=== PATIENT | female | born 1965 | race Caucasian/White ===

== ENCOUNTER → 2017-08-13 | Outpatient (CLI) | payer OTHER ==
[~2017-08-13] MED LIST: LISINOPRIL20 MG PO; MEDROLDOSEPACK PO; PRAVACHOL20 MG PO; PREMARIN0.625 MG PO; SYNTHROID175 MCG PO; TOPROL XL100 MG PO; TORADOL 10 MG T10 MG PO; VALIUM5 MG PO; VITAMIN D3400 UNIT PO
--- NOTE | 2017-08-13 15:12 | EXE ---
[place] [address] STRESS ECHOCARDIOGRAM Name: ANNITA BROUSSARD Gayle Room: [facility]#: [id number] Admission: 08/13/17 Attend Phys: Rolf Villatoro, Discharge: Date of : 69 Date of Service: 08/13/17 1511 Report #: [id number] THIS REPORT FOR: //name// APPROVED REPORT Exam: Stress Echocardiogram Indication: Dyspnea Patient Location: Out-Patient Stress Nurse: Benita Burch RN Supervising Physician: Alfredo Murrieta MD Status: routine Ht: 6 ft 0 in HR: 52 bpm BP: 113/67 mmHg Rhythm: NSR Medical History Cardiac Risk Factors: HTN, Hyperlipidemia Procedure The patient underwent an Exercise Stress Test using the Owen Protocol. Blood pressure, heart rate, and EKG were monitored. An Echocardiogram was performed by contract technician in four stages in quad fashion. At peak stress, four selected images were obtained and placed side by side with resting images for comparison. Echo Enhancing Agent Indication: Endocardial border delineation Agent(s) / Amount(s) Used: Optison 8 cc Stress Test Details Stress Test: Exercise stress testing was performed using a Owen protocol. HR Resting HR: 52 bpm Max Heart Rate (APMHR): 171 bpm Max HR Achieved: 150 bpm Target HR (85% APMHR): 145 bpm % of APMHR: 87 Recovery HR: 72 bpm HR response to stress: Normal HR response to stress BP Resting BP: 113/67 mmHg Max BP: 170/86 mmHg Recovery BP: 117/67 [place] [address] STRESS ECHOCARDIOGRAM Name: ANNITA BROUSSARD Gayle Room: [facility]#: [id number] Admission: 08/13/17 Attend Phys: Rolf Villatoro, Discharge: Date of : 69 Date of Service: 08/13/17 1511 Report #: [id number] Clinical Reason for Termination: Dyspnea, Maximal effort Exercise duration: 7 min 22 sec Highest Stage Achieved: 3 Exercise capacity: 9.13 METs Pre-Stress Echo The resting Echocardiogram showed normal left ventricular contractility with an estimated Ejection Fraction of about 55-60%. Normal wall motion in all segments on baseline images. Post-Stress Echo The stress Echocardiogram showed normal left ventricular contractility with an estimated Ejection Fraction of about >70%. Normal augmentation of wall motion in all segments on post stress images. Clinical Normal augmentation of myocardial wall segments using a 17 segment model. Conclusion Clinical Response: Non-ischemic Exercise Capacity: Average Stress ECG Response: Non-ischemic Stress Echo Images: Non-ischemic The left ventricle is normal in size and wall thickness in both the rest and stress images. Other Information Technically limited study due to body habitus, poor endocardial definition. <Conclusion> The left ventricle is normal in size and wall thickness in both the rest and stress images. <ELECTRONICALLY SIGNED> By: Alfredo Murrieta MD, FACC 08/13/171510 10 10 Alfredo Murrieta MD, FACC /INF
== END ==
LOC: M.CRD 13:00
DX: I47.1 Supraventricular tachycardia (principal); R06.09 Other forms of dyspnea

== ENCOUNTER 2018-01-16 23:03 | Emergency (ER) | payer OTHER ==
[~2018-01-16] VITALS: Ht 182.9 cm; Wt 129.3 kg
[2018-01-16] MEDS ORDERED: TOPROL XL100 MG PO (23:12)
[2018-01-16] MEDS ORDERED: SYNTHROID175 MCG PO (23:12)
[2018-01-16] MEDS ORDERED: PREMARIN0.625 MG PO (23:13)
[2018-01-16] MEDS ORDERED: PRAVACHOL20 MG PO (23:13)
[2018-01-16] MEDS ORDERED: LISINOPRIL20 MG PO (23:13)
[2018-01-16] MEDS ORDERED: VITAMIN D3400 UNIT PO (23:14)
[2018-01-17] MEDS ORDERED: MEDROLDOSEPACK PO ×2 (01:37→01:39)
[2018-01-17] MEDS ORDERED: TORADOL 10 MG T10 MG PO ×2 (01:37→01:39)
[2018-01-17] MEDS ORDERED: VALIUM5 MG PO (01:37)
[2018-01-17 01:46] VITALS: BP 131/83
== END 2018-01-17 01:47 | disposition home or self-care (01) ==
LOC: M.ERS 23:03
DX: M54.42 Lumbago with sciatica, left side (principal); M54.41 Lumbago with sciatica, right side; M19.90 Unspecified osteoarthritis, unspecified site; I10 Essential (primary) hypertension; E03.9 Hypothyroidism, unspecified; Z90.49 Acquired absence of other specified parts of digestive tract

== ENCOUNTER 2018-02-09 17:03 | Inpatient (IN) | payer OTHER ==
[~2018-02-09] VITALS: Ht 182.9 cm; Wt 127.0 kg
[2018-02-09 17:14] VITALS: BP 167/70
[2018-02-09 17:26] LABS: URINE BILIRUBIN NEGATIVE (Negative); URINE BLOOD 3+ (Negative); URINE CLARITY SL CLOUDY; URINE COLOR YELLOW; URINE GLUCOSE-RANDOM NEGATIVE (Negative); URINE KETONES NEGATIVE (Negative); URINE LEUKOCYTES NEGATIVE (Negative); URINE NITRITE NEGATIVE (Negative); URINE PROTEIN TRACE (Negative); URINE SPECIFIC GRAVITY 1.025 (1.005-1.030); URINE UROBILINOGEN 0.2 E.U./dl (0.2-1.0)
[2018-02-09 17:40] LABS: ABSOLUTE EOSINOPHILS 0.3 thou/uL (0.0-0.7); ABSOLUTE LYMPHOCYTES 2.5 thou/uL (0.8-5.3); ABSOLUTE MONOCYTES 0.7 thou/uL (0.0-1.2); ABSOLUTE NEUTROPHILS 5.5 thou/uL (1.6-8.1); BASOPHILS 0.2 %; EOSINOPHILS 3.3 %; HEMATOCRIT 40.2 % (37.0-47.0); HEMOGLOBIN 13.2 gm/dL (12.0-15.0); LYMPHOCYTES 27.4 %; MCV 84.8 fL (80.0-100.0); MONOCYTES 7.3 %; MPV 8.7 fl. (7.2-11.1); NUCLEATED RBCS 0 /100WBC; PLATELET COUNT* 284 thou/uL (150-400); POLYS 61.8 %; RBC 4.74 mil/uL (4.20-5.00); RDW-CV 13.4 % (10.5-14.5)
[2018-02-09 17:47] LABS: CALCIUM 8.8 mg/dL (8.5-10.1); CREATININE 1.2 mg/dL (0.6-1.3); POTASSIUM 3.6 mmol/L (3.5-5.1)
[2018-02-09 17:48] LABS: MUCUS 0-3 Light strn/LPF (None Seen); SQUAMOUS >10 Many /LPF (0-3); URINE RBC >20 Many /HPF (0-2)
[2018-02-09 17:49] LABS: BACTERIA 1-9 Few /HPF (None Seen); CASTS None Seen /LPF (None Seen); CRYSTALS None Seen /LPF (None Seen); URINE WBC 0-5 Rare /HPF (0-5)
[2018-02-09 17:56] LABS: ALBUMIN 3.9 g/dL (3.4-5.0); TOTAL BILIRUBIN 0.2 mg/dL (<0.1-1.0); TOTAL PROTEIN 7.6 g/dL (6.4-8.2)
[2018-02-09 19:08] LABS: APTT 28.2 Seconds (25.0-31.3); PROTIME 10.4 Seconds (9.20-11.50)
[2018-02-09 21:37] VITALS: BP 136/48
[2018-02-09 22:38] VITALS: BP 121/62
[2018-02-10 09:00] VITALS: BP 112/59
[2018-02-10 15:08] VITALS: BP 105/48
[2018-02-10 15:48] VITALS: BP 105/48
[2018-02-11] VITALS: BP 95/45
[2018-02-11 11:32] VITALS: BP 105/48
[2018-02-11 12:08] VITALS: BP 105/48
--- NOTE | 2018-02-13 12:09 | OP ---
[facility] [address] [place] [address] OPERATIVE REPORT Name: ANNITA BROUSSARD Room: [address] IN M.R.#: [id number] Admission: 02/09/18 Attend Phys: Quyen Bella MD Discharge: 02/11/18 Date of : 69 Report #: [id number] THIS REPORT FOR: //name// CC: Quyen Ford DATE OF SERVICE: 02/10/2018 INDICATIONS FOR PROCEDURE: The patient is a 52-year-old female who was admitted today through the Emergency Department with severe left-sided flank pain. Evaluation with CT revealed a 6-mm left distal ureteral calculus with ureteral obstruction. Due to continued pain and after discussing all risks and benefits, the patient elected to proceed with cystoscopy and ureteroscopic stone extraction with holmium laser lithotripsy. PREOPERATIVE DIAGNOSIS: Left ureteral calculus. POSTOPERATIVE DIAGNOSIS: Left ureteral calculus. PROCEDURE: Cystoscopy, left ureteroscopic stone extraction with holmium laser lithotripsy, left stent placement. SURGEON: Raf Grace M.D. ANESTHESIA: General. COMPLICATIONS: None. ESTIMATED BLOOD LOSS: None. PROCEDURE IN DETAIL: The patient was consented for the above procedure, given broad spectrum IV antibiotics preoperatively. She was given general anesthetic. Ports were placed in the dorsal lithotomy position, prepped and draped in usual sterile fashion over the genitalia. Cystoscopy was performed with the 22-Portuguese sheath and 30-degree lens, which revealed mild urethral stenosis. The patient had a moderate cystocele, but no stones, ulcerations or tumors were noted within the bladder itself. The ureteral orifices were easily identified. The stone was easily seen on fluoroscopy. Based on that, I attempted to pass a 0.035 floppy-tipped guidewire, but was unsuccessful due to stone impaction. However, using a combination of 5-Portuguese Pollack catheter and the guidewire, I was able to cannulate the ureter and get the wire beside the stone up into the renal pelvis. Concentrated urine drained upon passing the wire. Next, the cystoscope was removed. The semirigid ureteroscope was used to perform ureteroscopy alongside the wire until this stone was identified. This appeared to be a calcium oxalate monohydrate stone that is very dark in color, very smooth and very hard. I was able to break it up; however, with a 200 [place] [address] OPERATIVE REPORT Name: ANNITA BROUSSARD Gayle Room: [address] [place] [facility].#: [id number] Admission: 02/09/18 Attend Phys: Quyen Bella MD Discharge: 02/11/18 Date of : 69 Report #: [id number] without difficulty and to manageable size pieces, which were all removed with a 0 tip nitinol stone basket. These were all deposited into the bladder for later removal. After completely removing all the stone, I elected to place a 4.8 x 28 double-J stent. This was performed without difficulty with a good curl noted in the renal pelvis and in the bladder after removing the wire. This was confirmed with fluoroscopy and cystoscopy. The stone fragments were then removed from the bladder via the cystoscope sheath. The bladder was drained, scope was removed. Uro-Jet was placed per urethra for local anesthesia. She was awakened and sent to recovery room where she remained in stable condition. We will leave the stent in place for approximately 1 week and remove it in the office. <ELECTRONICALLY SIGNED> By: Raf Grace MD 02/13/18 1209 [id number] [id number] Grace MD /nt
[2018-02-16 17:10] LABS: STONE CA OXALATE MONOHYDRATE 93 % (()); STONE COLOR Brown (())
== END 2018-02-11 12:10 | disposition home or self-care (01) | DRG 669 ==
LOC: M.ERS 17:03 → M.TBA-ER 18:55 → M.3W 18:55
PROVIDERS: Nurse Practitioner Family; ADMIT Internal Medicine
PROC: 0TC78ZZ Extirpation of Matter from Left Ureter, Via Natural or Artificial Opening Endoscopic (ICD-10-PCS; principal; 2018-02-10)
PROC: 0T778DZ Dilation of Left Ureter with Intraluminal Device, Via Natural or Artificial Opening Endoscopic (ICD-10-PCS; 2018-02-10)
DX: N13.2 Hydronephrosis with renal and ureteral calculous obstruction (principal); M06.9 Rheumatoid arthritis, unspecified; I10 Essential (primary) hypertension; E03.9 Hypothyroidism, unspecified; Z90.49 Acquired absence of other specified parts of digestive tract; Z79.899 Other long term (current) drug therapy

== ENCOUNTER → 2018-07-30 | Outpatient (CLI) | payer OTHER ==
--- NOTE | 2018-08-10 00:02 | SLEEP ---
[address] [address] SLEEP STUDY REPORT Name: ANNITA BROUSSARD Room: [facility]#: [id number] Admission: 07/30/18 Attend Phys: Rolf Villatoro MD Discharge: Date of : 69 Report #: [id number] THIS REPORT FOR: //name// CC: VICKY Villatoro [facility] This study has been reviewed in its entirety by a board certified sleep specialist DATE OF SERVICE: 08/01/2018 ATTENDING PHYSICIAN: Rolf Villatoro MD [facility]. The patient is a 52-year-old who weighs 306 pounds with a BMI of 41.5. The patient's [place] score is 14 suggesting moderate subjective hypersomnia. The patient underwent home sleep study performed at [facility]. Total recording time was 492.6 minutes. During the night study, the patient had 2 central apneas, 18 obstructive apneas, no mixed apneas and 73 hypopneas. The patient's apnea hypopnea index was 11.3 per hour with a supine index of 11.3 per hour as well. Nocturnal oximetry study revealed an average oxygen saturation of 90%, with lowest of 82%. 147 minutes were spent in oxygen saturation of less than 90%. Mean heart rate was 63 beats per minute with a maximum of 99 beats per minute. IMPRESSION: 1. Mild sleep apnea-hypopnea syndrome at an AHI of 11.3 per hour. 2. Moderate nocturnal hypoxia secondary to obstructive sleep apnea. RECOMMENDATIONS: 1. The patient is clinically symptomatic with an [place] score of 14. I would recommend treating the patient's mild sleep apnea with either oral appliance or a trial of CPAP. 2. CPAP titration can be accomplished either as home auto-titration study versus in-lab CPAP titration study. 3. Once the patient is optimally treated, follow up in 4-6 weeks to assess compliance and to document clinical improvement. 4. Weight loss is strongly advised. 5. Avoid [place] [address] SLEEP STUDY REPORT Name: ANNITA BROUSSARD [id number] Admission: 07/30/18 Attend Phys: Rolf Villatoro MD Discharge: Date of : 69 Report #: [id number] 6. Cautioned regarding driving until the patient's hypersomnia is resolved with the above recommendations. <ELECTRONICALLY SIGNED> By: Sacha Villeda MD 08/10/18 0002 1701 1917Akishor Villeda MD /nt
== END ==
LOC: M.SLEEPLAB 12:47
DX: G47.33 Obstructive sleep apnea (adult) (pediatric) (principal); G47.34 Idiopathic sleep related nonobstructive alveolar hypoventilation; Z88.8 Allergy status to other drugs, medicaments and biological substances

== ENCOUNTER → 2020-02-15 | Outpatient (CLI) | payer OTHER | LOC: M.ULTRA 15:51 | PROVIDERS: ATTEND Nurse Practitioner Women's Health | DX: Z12.31 Encounter for screening mammogram for malignant neoplasm of breast (principal); E28.0 Estrogen excess; D25.9 Leiomyoma of uterus, unspecified ==

== ENCOUNTER 2020-07-18 17:11 | Emergency (ER) | payer OTHER ==
[~2020-07-18] VITALS: Ht 182.9 cm; Wt 113.4 kg
[2020-07-18] MEDS ORDERED: CRESTOR10 MG PO (17:22)
[2020-07-18 18:12] VITALS: BP 129/78
== END 2020-07-18 18:15 | disposition home or self-care (01) ==
LOC: M.ERS 17:11
DX: S63.653A Sprain of metacarpophalangeal joint of left middle finger, initial encounter (principal); M06.9 Rheumatoid arthritis, unspecified; I10 Essential (primary) hypertension; E03.9 Hypothyroidism, unspecified; Z90.89 Acquired absence of other organs; Z90.49 Acquired absence of other specified parts of digestive tract; Z87.442 Personal history of urinary calculi; X50.9XXA Other and unspecified overexertion or strenuous movements or postures, initial encounter; Y93.89 Activity, other specified; Y92.89 Other specified places as the place of occurrence of the external cause; Y99.0 Civilian activity done for income or pay